=== PATIENT | male | born 1990 | race Caucasian/White ===

== ENCOUNTER 2017-12-05 21:32 | Emergency (ER) | payer OTHER ==
[2017-12-05] MEDS ORDERED: oxyCODONE/Acetamin 5/325 MG* TAB PO ONE (23:27)
[2017-12-06 00:38] VITALS: BP 146/98
--- NOTE | 2017-12-06 06:01 | ED ---
Madeline Mcbride Thomas, scribed for Leo Nicholson MD on 12/06/17 at 0048 . Head Injury - HPI Summary HPI Summary: The patient is a 27 year old male who was playing hockey when he fell on the ice , striking his head. He does not remember the event. He had questionable loss of consciousness. - History Of Current Complaint Chief Complaint: EDHeadInjury Stated Complaint: HEAD INJURY Time Seen by Provider: 12/05/17 22:52 Hx Obtained From: Patient Mechanism Of Injury: Other - Hockey Onset/Duration: Still Present Severity Initially: Moderate Pain Intensity: 4 Pain Scale Used: 0-10 Numeric Alleviating Factor(s): Other: - Nothing Associated Signs And Symptoms: LOC Duration Unknown Anticoagulant Therapy: Other: - Hockey injury - Allergies/Home Medications Allergies/Adverse Reactions: Allergies Allergy/AdvReac Type Severity Reaction Status Date / Time No Known Allergies Allergy Verified 12/05/17 21:36 PMH/Surg Hx/FS Hx/Imm Hx Sensory History: Denies: Hx Deafness Opthamlomology History: Denies: Hx Legally Blind EENT History: Denies: Hx Deafness - Immunization History Date of Influenza Vaccine: fall 2016 Infectious Disease History: No Infectious Disease History: Reports: Traveled Outside the [place] in Last 30 Days - [facility] - Family History Known Family History: Positive: Other - Patient denies relevant FHx - Social History Alcohol Use: Daily Alcohol Amount: 3 drinks tonight Substance Use Type: Reports: None Smoking Status (MU): Never Smoked Tobacco Review of Systems Positive: Fever Neurological: Other - Head injury, questionable LOC All Other Systems Reviewed And Are Negative: Yes Physical Exam - Summary Physical Exam Summary: VITAL SIGNS: Reviewed. GENERAL: Patient is a well-developed and nourished male who is lying comfortable in the stretcher. Patient is not in any acute respiratory distress. HEAD AND FACE: He has a swollen tender ecchyotic area to the left side of his forehead. No hematomas or skull depressions. No sinus tenderness. EYES: PERRLA, EOMI x 2, No injected conjunctiva, no nystagmus. EARS: Hearing grossly intact. Ear canals and tympanic membranes are within normal limits. MOUTH: Oropharynx within normal limits. NECK: Supple, trachea is midline, no adenopathy, no JVD, no carotid bruit, no c- spine tenderness, neck with full ROM. CHEST: Symmetric, no tenderness at palpation LUNGS: Clear to auscultation bilaterally. No wheezing or crackles. CVS: Regular rate and rhythm, S1 and S2 present, no murmurs or gallops appreciated. ABDOMEN: Soft, non-tender. No signs of distention. No rebound no guarding, and no masses palpated. Bowel sounds are normal. EXTREMITIES: FROM in all major joints, no edema, no cyanosis or clubbing. NEURO: Alert and oriented x 3. No acute neurological deficits. Speech is normal and follows commands. SKIN: Dry and warm Triage Information Reviewed: Yes Vital Signs On Initial Exam: Initial Vitals Temp Pulse Resp BP Pulse Ox 97.8 F 101 20 150/96 97 12/05/17 21:33 12/05/17 21:33 12/05/17 21:33 12/05/17 21:33 12/05/17 21:33 Vital Signs Reviewed: Yes Diagnostics - Vital Signs Vital Signs Temp Pulse Resp BP Pulse Ox 12/06/17 00:20 98.2 F 85 16 146/98 96 12/06/17 00:08 16 12/05/17 21:33 97.8 F 101 20 150/96 97 - Laboratory Lab Statement: Any lab studies that have been ordered have been reviewed, and results considered in the medical decision making process. - CT CT Brain CT Interpretation: No Acute Changes - Normal brain. No acute intracranial abnormality. No hemorrhage. No visible infarct or mass. Osseous structures are intact. Left frontal scalp hematoma noted. Dr. Nicholson has reviewed this report. CT Interpretation Completed By: Radiologist Re-Evaluation - Re-Evaluation First Eval Re-Evaluation Time: 00:00 Comment: Results discussed. Patient will be discharged. Head Injury Course/Dx Assessment/Plan: The patient is a 27 year old male who was playing hockey when he fell on the ice, striking his head. He had questionable loss of consciousness. The patient was given Percocet. CT Brain shows Normal brain. No acute intracranial abnormality. No hemorrhage. NO visible infarct or mass. Osseous structures are intact. Left frontal scalp hematoma noted. The patient was discharged home with primary care follow up. Diagnosis is head injury. The patient was advised to use warm compresses and take Tylenol for the pain. - Diagnoses Provider Diagnoses: Head injury Discharge - Sign-Out/Discharge Documenting (check all that apply): Discharge - Discharge Plan Condition: Good Disposition: HOME Patient Education Materials: Head Injury (ED) Referrals: [facility] - Mike LOBO [Primary Care Provider] - 3 Days Additional Instructions: Follow up at [facility] in three days. I recommend warm compresses and Tylenol for the pain. Return to the emergency department for any new or worsening symptoms. The documentation as recorded by the Madeline sanford Thomas accurately reflects the service I personally performed and the decisions made by me, Leo Nicholson MD.
--- NOTE | 2017-12-06 07:31 | RAD ---
INDICATION: Head injury. COMPARISON: There are no prior studies available for comparison. TECHNIQUE: Contiguous axial sections of the brain were obtained from the skull base to the vertex without contrast. FINDINGS: The ventricles, cisterns and sulci are within normal limits. No significant focal abnormality or mass effect is seen. There is no evidence for hemorrhage. There is a hematoma anterior to the left frontal bone in the scalp measuring 4.8 x 1.2 cm in size. No fracture is seen. The visualized portion of the paranasal sinuses and mastoid air cells appear clear. IMPRESSION: 1. NO EVIDENCE FOR ACUTE INTRACRANIAL ABNORMALITY. 2. HEMATOMA IN THE SCALP ANTERIOR TO THE LEFT FRONTAL BONE.
== END 2017-12-06 00:25 | disposition home or self-care (01) ==
LOC: ED 21:32
DX: S09.90XA Unspecified injury of head, initial encounter (principal); R50.9 Fever, unspecified; W00.9XXA Unspecified fall due to ice and snow, initial encounter; Y92.9 Unspecified place or not applicable
CPT/HCPCS: 70450; 99283; A9270-GY